=== PATIENT | male | born 1930 | race Caucasian/White ===

== ENCOUNTER 2016-08-17 21:14 | Emergency (ER) | payer MEDICARE, BC ==
[~2016-08-17] VITALS: Ht 172.7 cm; Wt 86.2 kg
[2016-08-17 21:14] VITALS: Ht 172.7 cm; Wt 86.2 kg
[~2016-08-17 21:14] MED LIST: ALBU0.21 IH; ALBU18HF2 IH; ASPI-725 PO; BENA20TA45 PO; FISH1CAP28 PO; FURO20TA6 PO; GABA-190 PO; MULT-795 PO; PITA1TAB PO; POTA10TA93 PO; WARF5TAB69 PO; [UNRECOGNIZED DRUG - CODE] PO
--- OUTSIDE RECORDS SUMMARY | 2016-08-17 21:28 | XMS REPORT | Summary of Care ---
Author Author Jose Hogue M.D. Organization Unknown Address [address] [place] [address], [place] [id number] Phone Unavailable Care Team Providers Care Computing Systems Mechanic Name Role Phone Carolina Suarez, Magdalene Unavailable Unavailable Steffen Mancuso PP Unavailable Functional Status Functional Status Health Issues* Name Dates Details Functional status health issues are not documented Status: Cognitive Status Health Issues* Name Dates Details Cognitive status health issues are not documented Status: Problems Name Dates Details Asthma (493.90, J45.909) Status: Active Transient ischemic attack (435.9, G45.9) Status: Active Cerebral vascular disease (437.9, I67.9) Status: Active Memory loss (780.93, R41.3) Status: Active Medications Name Dates Details Albuterol Sulfate (2.5 MG/3ML) 0.083% Inhalation Nebulization Solution USE DIRECTED. Quantity: 30 Enrique Figueroa M.D.* Started 20-Dec-2007 ActiveTEGretol 200 MG Oral Tablet TAKE 1 TABLET TWICE DAILY. * Quantity: 60 Refills: 0 * Started 03-Apr-2014 ActiveMultivital Oral Tablet TAKE 1 TABLET DAILY. * Quantity: 1 Refills: 0 * Started 03-Apr-2014 ActiveNeurontin 300 MG Oral Capsule TAKE 1 CAPSULE AT BEDTIME. * Quantity: 30 Refills: 3 * Started 03-Apr-2014 ActiveBenazepril HCl - 20 MG Oral Tablet TAKE 1 TABLET TWICE DAILY. * Refills: 0 * Started 03-Apr-2014 ActiveLasix 20 MG Oral Tablet TAKE 1 TABLET DAILY. * Refills: 0 * Started 03-Apr-2014 ActivePotassium Chloride 20 MEQ Oral Packet * Refills: 0 * Started 03-Apr-2014 ActiveWarfarin Sodium 1 MG Oral Tablet * Refills: 0 * Started 03-Apr-2014 ActivePriLOSEC 40 MG Oral Capsule Delayed Release TAKE 1 CAPSULE DAILY. * Refills: 0 * Started 03-Apr-2014 ActiveTandem 162-115.2 MG Oral Capsule TAKE 1 CAPSULE DAILY. * Refills: 0 * Started 03-Apr-2014 ActiveAspirin 81 MG Oral Tablet TAKE 1 TABLET DAILY. * Refills: 0 * Started 03-Apr-2014 ActiveAricept 5 MG Oral Tablet TAKE 1 TABLET AT BEDTIME. * Refills: 0 * Started 03-Apr-2014 ActiveNamenda 5 MG Oral Tablet TAKE 1 TABLET ONCE DAILY. 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) Status: Resolved History of hypertension (V12.59, Z86.79) Status: Resolved History of lung disease (V12.60, Z87.09) Status: Resolved History of myocardial infarction (412, I25.2) Status: Resolved 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, 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 History of Trigeminal neuralgia (350.1, G50.0) Status: Resolved History of Wears glasses (V49.89, Z97.3) Status: Resolved Procedures Procedure Dates Details History of Heart Surgery ULTRASOUND CAROTID Ordered:03-Apr-2014 Immunization Name Dates Details Immunizations not documented Family History Mother* Name Dates Details Family history of Status: Active Family history of cerebrovascular accident (V17.1, Z82.3) Status: Active Father* Name Dates Details Family history of Status: Active Family history of cardiac disorder (V17.49, Z82.49) Status: Active Social History Name Dates Details Smoking Status* Former smoker Vital Signs Date Test Result Details 03-Apr-2014 10:35 BP Systolic 122 mm[Hg] Status: BP Diastolic 70 mm[Hg] Status: Heart Rate 66 /min Status: Respiration Rate 16 /min Status: Weight 181.25 lb Status: Results Date Description Value Details Results not documented Plan of Care Planned Observations* Name Dates Details Planned Goals not documented Goal Planned Encounters* Appointment; Provider: Jose Hogue On 26-Apr-2014 14:45 * Appointment; Provider: Jose Hogue On 26-Apr-2014 12:00 Instructions * Instructions not documented Encounters Appointment; Jose Hogue Encounter Diagnosis: Problem not documented On 03-Apr-2014 10:00
--- OUTSIDE RECORDS SUMMARY | 2016-08-17 21:28 | XMS REPORT | Summary of Care ---
Author Author Jose Hogue M.D. Organization Unknown Address [address] [place], [place] [id number] Phone Unavailable Care Team Providers Care Broomcorn Grader Name Role Phone Mykel Suarez, Marquita Unavailable Unavailable Carolina Suarez, Magdalene Unavailable Unavailable Steffen Mancuso PP Unavailable Unavailable Unavailable Functional Status Functional Status Health Issues* [...] Quantity: 30 Enrique Figueroa M.D.* Started 20-Dec-2007 ActiveMultivital Oral Tablet TAKE 1 TABLET DAILY. [...] Tablet * Refills: 0 * Started 03-Apr-2014 ActiveCarBAMazepine ER 300 MG Oral Capsule Extended Release 12 Hour Take 1 capsule twice daily * Quantity: 60 Refills: 5 Jose Hogue M.D.* Started 26-Apr-2014 Active Allergies and Adverse Reactions Name Dates [...] Procedure Dates Details History of Heart Surgery Procedures not documented Immunization Name Dates Details Immunizations not documented Family History Mother* Name Dates Details Family history of Status: Active Family history of cerebrovascular accident (V17.1, Z82.3) Status: Active Father* Name Dates Details Family history of Status: Active Family history of cardiac disorder (V17.49, Z82.49) Status: Active Social History Name Dates Details Smoking Status* Former smoker Vital Signs Date Test Result Details 26-Apr-2014 14:53 BP Systolic 140 mm[Hg] Status: BP Diastolic 80 mm[Hg] Status: Heart Rate 60 /min Status: Weight 183 lb Status: 03-Apr-2014 10:35 BP Systolic 122 mm[Hg] Status: BP Diastolic 70 mm[Hg] Status: Heart Rate 66 /min Status: Respiration Rate 16 /min Status: Weight 181.25 lb Status: Results Date Description Value Details 26-Apr-2014 10:39 ULTRASOUND CAROTID Comments: Exam Date: 09: 46Dictation Date: 10:39 XS CAROTID (Better) Plan of Care Planned Observations* Name Dates Details Planned Goals not documented Goal Instructions * Instructions not documented Encounters Appointment; Jose Hogue Encounter Diagnosis: Problem not documented On 26-Apr-2014 14:45 Appointment; Jose Hogue Encounter Diagnosis: Problem not documented On 26-Apr-2014 12:00 Appointment; Jose Hogue Encounter Diagnosis: Problem not documented On 03-Apr-2014 10:00
--- NOTE | 2016-08-17 21:34 | NUR ---
CT PT IS TAKEN TO XRAY ACCOMP WITH YASSINE DUNN VIA CART
--- NOTE | 2016-08-17 21:36 | ERPDOC ---
Departure Disposition Decision Date: August 17, 2016 Disposition Decision Time: 22:50 (MARIAMA LOCKWOOD APRN) Disposition: 01 DISCHARGED HOME, SELF-CARE Impression Impression (MARIAMA LOCKWOOD APRN) Impression: Primary Impression: Fall Encounter type: initial encounter Qualified Codes: W19.XXXA - Unspecified fall, initial encounter Additional Impression: Facial contusion Encounter type: initial encounter Qualified Codes: S00.83XA - Contusion of other part of head, initial encounter Severity: Moderate (MARIAMA LOCKWOOD APRN) Condition: Stable Seen By: Mid-level only (MARIAMA LOCKWOOD APRN) Referrals: NATHALIA MADDOX MD (Family) Patient Instructions: Contusion in Adults (ED) Problems/Meds/Labs Reviewed?: Yes Medications reviewed and manag: Yes (MARIAMA LOCKWOOD APRN) Additional Instructions: Ct of head, face, and cervical spine today was negative. He may use Tylenol and/ or Ibuprofen as needed for pain at home. If you have any other issues/concerns then please follow up with your primary care provider for reevaluation. Return to ER with any severe pain, vomiting, or any new issues/concerns. Follow up care ordered?: Yes Mental Status: Alert (MARIAMA LOCKWOOD APRN) HPI - Fall/Injury General Stated Complaint: FALL Time Seen by Provider: 21:32 Source: patient, family () Exam Limitations: no limitations (MARIAMA LOCKWOOD APRN) Time Seen by Provider: 21:32 (ANNI NORTON MD) HPI - Fall/Injury Initial Comments He has a history of dementia. Tonight he was outside walking the loop around his house. He fell and landed face down in the gutter. Was not able to get himself up. His estimates he was laying outside for about 5 minutes before his neighbors saw him. They did call EMS and he was transported to ER with c collar in place and on long back board. He is alert. Denies any pain but is noted that he has an abrasion on the right elbow and on the right eye. Does have some blood in the right side of his face but no active bleeding noted. Occurred At: home Severity: moderate Injuries/Pain Location: no injury Loss of Consciousness: unsure Associated Symptoms: DENIES: abdominal pain, chest pain, confusion, dizziness, headache, lightheadedness, muscle spasms, nausea/vomiting, neck pain, ringing in ears, seizures, shortness of breath, slurred speech, trouble walking, vision changes Hx of Similar Symptoms: Yes (NOLD,MARIAMA N CHILD WELFARE CONSULTANT) Allergies: Coded Allergies: Penicillins (Verified Allergy, Severe, RESPIRATORY DEPRESSION AND COLLAPSE , 12/03/11) Past History Past Medical History Metabolic: hypercholesterolemia, hypertension Cardiac: A-fib, CAD, CHF Respiratory: COPD, asthma Neurological: TIA, other (NOLD,MARIAMA N CHILD WELFARE CONSULTANT) Surgical History General: colonoscopy Cardiac: cardiac bypass Joint: knee (NOLD,MARIAMA N CHILD WELFARE CONSULTANT) Vaccines Hx Influenza Vaccination: Yes (2010) Hx Pneumococcal Vaccination: Yes (Apr 2003) (NOLD,MARIAMA N CHILD WELFARE CONSULTANT) Review of Systems Constitutional Constitutional: DENIES: chills, dizziness, fatigue, fever, weakness (NOLD, MARIAMA N CHILD WELFARE CONSULTANT) Eyes Vision: DENIES: blurring, double vision (NOLD,MARIAMA N CHILD WELFARE CONSULTANT) ENMT Ears: DENIES: drainage, pain Sinuses: DENIES: congestion, rhinorrhea Mouth/Throat: DENIES: painful swallowing, scratchy throat, sore throat (NOLD, MARIAMA N CHILD WELFARE CONSULTANT) Cardiovascular Cardiac: DENIES: chest pain, orthopnea Rhythm/Rate: DENIES: irregular beat, palpitations (NOLD,MARIAMA N CHILD WELFARE CONSULTANT) Pulmonary Respiratory: DENIES: cough, dyspnea, sputum, tachypnea (NOLD,MARIAMA N CHILD WELFARE CONSULTANT) GI Upper Abdomen: DENIES: nausea, pain, vomiting Lower Abdomen: DENIES: constipation, diarrhea, pain (NOLD,MARIAMA N CHILD WELFARE CONSULTANT) Integumentary Skin: DENIES: rash (NOLD,MARIAMA N CHILD WELFARE CONSULTANT) Neurological General: DENIES: headache, numbness, tingling, weakness (NOLD,MARIAMA N CHILD WELFARE CONSULTANT) Physical Exam General General Nourishment: well nourished, well developed, appears stated age, no acute distress, adult General Body Habitus: well groomed (NOLD,MARIAMA N CHILD WELFARE CONSULTANT) Vitals and Pain Weight: Kilograms: Height (feet): Height (inches): Triage Pain Scale: (NOFIDEL,MARIAMA N CHILD WELFARE CONSULTANT) RN VS reviewed by Provider: Yes (MARIAMA LOCKWOOD APRN) Normal Exams: Eyes: Pupils are PERRLA w/ EOMI, No scleral icterus, irritation, or foreign bodies noted Neck: Full range of motion, without adenopathy, JVD, bruits or thyromegaly Chest/Resp: Clear all cook, with good airflow, and symmetry bilaterally CV: Regular rate and rhythm, without murmur or gallop, Pulses 2+ all extremities, capillary refill, <2 seconds all ext., no pedal edema noted Abdomen: Bowel sounds positive, soft, non-tender, non-distended, no hepatosplenomegaly, masses or bruits noted Lymphatic: No lymphadenopathy, or lymphedema noted Musculoskeletal: No tenderness, or deformity noted, good range of motion, all extremities Neurologic: Patient is alert, and oriented, cranial nerves, motor/sensory/ cerebellar, exams w/o gross deficits, to observation Psychiatric: Patient exhibits, appropriate attention, emotion and affect (MARIAMA LOCKWOOD APRN) ENMT (brief) ENMT Brief: FOUND: TM clear, TM good light reflex, ear canals clear, mucosa moist, normal dentition, normal tonsils, NOT FOUND: lesions, nasal erythema, nasal exudate, nasal swelling, petechiae, pharnyx erythema, tonsillar deviation (MARIAMA LOCKWOOD CHILD WELFARE CONSULTANT) Neck (brief) Neck: FOUND: tenderness (Mild TTP during primary exam with C collar in place. ) (MARIAMA LOCKWOOD CHILD WELFARE CONSULTANT) Musculoskeletal (brief) Musculoskeletal Brief: NOT FOUND: deformity, loss of motion, tenderness ( Denies any TTP along the thoracic spine and lumbar sping or pelvis or extremities. ) (MARIAMA LOCKWOOD CHILD WELFARE CONSULTANT) Integumentary (brief) Integumentary Brief: FOUND: other (He has a small abrasion on the right elbow and also on the right eye as well. ) (MARIAMA LOCKWOOD CHILD WELFARE CONSULTANT) Neurologic Mental Status: FOUND: alert, oriented GCS Adult : GCS Eye Opening: (4)Spontaneous GCS Verbal: (5)Oriented GCS Motor: (6)Obeys Commands (MARIAMA LOCKWOOD CHILD WELFARE CONSULTANT) Differential Diagnoses Considering: Abrasion, Concussion, Contusion, Fracture, Subdural Hematoma (MARIAMA LOCKWOOD CHILD WELFARE CONSULTANT) Progress Results/Orders Orders Procedure Category Date Status Time Ct Head W/O Contrast CT 08/17/[address] Cervical Spine W/O CT 08/17/[address] Maxillofacial W/O CT 08/17/16 Taken Contrast (ANNI NORTON MD) Progress Progress CT of face, head, and cervical spine today was negative. Will go ahead and dismiss to home. I did palpate all extremites and his lumbar and thoracic spine and have him go thru ROM of extremities as well. He did not have any pain with this. If any further concerns then follow up with PCP. (MARIAMA LOCKWOOD APRN) CT CT #1: Reason for Exam: fall, head injury CT: Head no contrast Interpretation: Normal CT #2: Reason for Exam: fall, neck pain CT: C-Spine no contrast Interpretation: Normal CT #3: Reason for Exam: fall, facial injury CT: Other (Maxillary-no contrast) (MARIAMA LOCKWOOD APRN) MARIAMA LOCKWOOD APRN August 17, 2016 21:36 ANNI NORTON MD August 18, 2016 01:48
--- NOTE | 2016-08-17 21:47 | NUR ---
RETURN FROM CT
[2016-08-17 23:15] VITALS: BP 183/79; PULSE 81; RESP 18; TEMP 99.5; O2SAT 96
--- NOTE | 2016-08-17 23:15 | NUR ---
DEPART PT AND FAMILY ARE GIVEN DISMISSAL INSTRUCTIONS WITH VERBAL UNDERSTANDING. PT LEAVES AMBULATORY WITH SON AND
[2016-08-18] MEDS ORDERED: DONE5TAB PO (00:49)
[2016-08-18] MEDS ORDERED: BECL8.7A6 ORAL INH (00:49)
[2016-08-18] MEDS ORDERED: OMEP20TA2 PO (00:49)
[2016-08-18] MEDS ORDERED: MEMA5TAB15 PO (00:49)
[2016-08-18] MEDS ORDERED: MONT10TA22 PO (00:49)
--- NOTE | 2016-08-18 08:11 | DI ---
Indication: ITS.REASON: fall, head injury PROCEDURE: CT HEAD W/O CONTRAST: Encounter: Initial Comparison: None Technique: Axial CT images through the head were performed without contrast. Iterative Reconstruction dose reducing techniques was utilized. FINDINGS: The ventricles are of normal size, shape, and contour for the patient's age. There are scattered areas of low attenuation in the white matter which most likely represent changes from chronic microvascular ischemia. The brainstem, cerebellum, and cerebral hemispheres otherwise have a normal morphology and CT attenuation. There is no evidence of midline displacement. No hemorrhage, signs of acute territorial stroke, mass effect, mass lesions, or edema is evident. There is mild right periorbital and facial swelling demonstrated. Mild mucosal thickening is demonstrated within the maxillary and ethmoid sinuses. IMPRESSION: 1. No acute intracranial process or hemorrhage. 2. Mild right periorbital and facial swelling. Mild mucosal thickening within the maxillary and ethmoid sinuses. .
--- NOTE | 2016-08-18 08:15 | DI ---
EXAM: CT of the Facial bones without contrast SITE OF DICTATION: [place]. INDICATION: ITS.REASON: fall, facial injuries COMPARISON: None Available. TECHNIQUE: Noncontrast CT of the maxillofacial region was performed in the axial plane without contrast. Coronal and sagittal reformatted images were also obtained. Automated Exposure Control and Iterative Reconstruction dose reducing techniques were utilized. FINDINGS: Review of the topogram demonstrates no acute abnormalities. There is mild mucosal thickening within the ethmoid and maxillary sinuses. Postsurgical changes demonstrated bilaterally maxillary antral windows. Ostiomeatal complexes are patent. No obstructive mass seen. No areas of bony erosion are identified. Visualized facial and nasal bones are intact. The nasal septum is midline. The orbits and globes appear normal. No facial soft tissue swelling. Visualized intracranial structures are normal. IMPRESSION: 1. Mild mucosal thickening within the ethmoid and maxillary sinuses and postsurgical changes about the bilateral maxillary sinuses. 2. No evidence for acute fracture. 3. Mild right periorbital and facial soft tissue swelling/edema. .
--- NOTE | 2016-08-18 08:20 | DI ---
EXAM: CT CERVICAL SPINE W/O CONTRAST LOCATION OF DICTATION: [place] HISTORY: ITS.REASON: fall, neck pain COMPARISON: No prior studies available for comparison. Technique: Axial CT images through the cervical spine were performed without contrast. Coronal and sagittal reformatted images were also obtained. Automated Exposure Control and Iterative Reconstruction dose reducing techniques were utilized. FINDINGS: The alignment of the cervical spine is normal. There is moderate multilevel degenerative changes are present. There is no evidence of acute fracture or subluxation of the cervical spine. There is mild multilevel facet arthropathy. The atlantoaxial articulation, dens, and upper cervical spine demonstrate no subluxation. At the C5-C6 and C6-C7 level there is prominent posterior disc osteophyte complexes could result in underlying central canal/recess or neuroforaminal stenosis. This can be further evaluated with MRI. The paraspinal soft tissues and spinal canal appear unremarkable. IMPRESSION: 1. No evidence for acute fracture or malalignment/subluxation. 2. [id number] spondylosis of the cervical spine. .
== END 2016-08-17 23:15 | disposition home or self-care (01) ==
LOC: ED 21:47
DX: S00.83XA Contusion of other part of head, initial encounter (principal); S50.311A Abrasion of right elbow, initial encounter; M54.2 Cervicalgia; W18.30XA Fall on same level, unspecified, initial encounter; Y93.01 Activity, walking, marching and hiking; Y92.008 Other place in unspecified non-institutional (private) residence as the place of occurrence of the external cause; Y99.8 Other external cause status